=== PATIENT | male | born 1985 | race African-American/Black ===

== ENCOUNTER 2019-09-07 09:55 | Emergency (ER) | payer MEDICAID ==
[~2019-09-07] VITALS: Ht 177.8 cm; Wt 99.8 kg
[2019-09-07 10:00] VITALS: BP 137/103
--- NOTE | 2019-09-07 10:01 | NUR ---
ED Nurse Note: Pt ambulated to ED d/t sore throat and dry cough x 3 days. Pt denies any self-exposure to crowded placed nor recent traveling.
[2019-09-07] MEDS ORDERED: LIDOCAINE VISC100 ML ORAL (10:20)
--- NOTE | 2019-09-07 10:21 | Emergency Room Report ---
History of Present Illness General Chief Complaint: Sore Throat Source: Patient Present Illness HPI 33-year-old male presents with sore throat x4 days no alleviating factors aggravated with swallowing, severity is mild, no voice changes no fevers no chills no neck stiffness patient presents for evaluation characterization is sharp Allergies: Coded Allergies: No Known Allergies (Unverified , 09/07/19) Patient History Past Medical History: see triage record Reviewed Nursing Documentation: PMH: Agreed; PSxH: Agreed Nursing Documentation-PMH Past Medical History: No Stated History Review of Systems All Other Systems: negative except mentioned in HPI Physical Exam Vital Signs Date Time Temp Pulse Resp B/P (MAP) Pulse Ox O2 Delivery O2 Flow Rate FiO2 09/07/19 09:57 99.3 90 16 137/103 (114) 100 Room Air General Appearance: well appearing, no apparent distress Head: normocephalic, atraumatic Eyes: bilateral eye PERRL, bilateral eye EOMI ENT: hearing grossly normal, normal voice, other - Patient with ulceration towards the back right of the throat, clear base Neck: full range of motion, supple Respiratory: no respiratory distress, speaking full sentences Neurologic: alert, normal gait Psychiatric: mood/affect normal Skin: no rash Medical Decision Making Diagnostic Impression: Primary Impression: Aphthous ulcer of mouth ER Course 33-year-old male presents with aphthous ulcer of the posterior pharynx, differential diagnosis includes RPA, [employer] Last Vital Signs Date Time Temp Pulse Resp B/P (MAP) Pulse Ox O2 Delivery O2 Flow Rate FiO2 09/07/19 10:00 99.3 68 16 137/103 100 Room Air Disposition: HOME, SELF-CARE Condition: Stable Scripts Lidocaine HCl 2% Viscous (Lidocaine HCl 2% Viscous) 100 Ml Solution 15 ML ORAL QID PRN for For Pain, #100 ML Prov: Bladimir Buchanan MD 09/07/19 Referrals: [facility] Patient Instructions: Oral Ulcers, Sore Throat Additional Instructions: The patient was provided with discharge instructions, notified to follow-up with a primary care doctor and or specialist in the next 24-48 hours, and to return to the ED if they have worsening of their symptoms. Please note that this report is being documented using [employer] technology. This can lead to erroneous entry secondary to incorrect interpretation by the dictating instrument. Bladimir Buchanan MD Sep 07, 2019 10:20
[2019-09-07 10:25] VITALS: BP 134/96
--- NOTE | 2019-09-07 10:25 | NUR ---
ER DISCHARGE NOTE: Patient is cleared to be discharged per ERMD, pt is aox4, on room air, with stable vital signs. pt was given dc and prescription instructions, pt was able to verbalize understanding, pt id band removed. pt is able to ambulate with steady gait. pt took all belongings.
[2019-09-07] MEDS ORDERED: Lidocaine 2% Visc 15ml soln ORAL ONE (10:30)
[2019-09-07] MEDS ORDERED: Ketorolac 30mg Inj IM ONE (10:30)
== END 2019-09-07 10:25 | disposition home or self-care (01) ==
LOC: EMR 10:18
DX: K12.0 Recurrent oral aphthae (principal)
CPT/HCPCS: 96372; J1885; Z7502; 99283